=== PATIENT | female | born 2000 | race Caucasian/White ===

== ENCOUNTER 2022-05-22 11:09 | Day surgery (SDC) | payer OTHER ==
[~2022-05-22] VITALS: Ht 154.9 cm; Wt 69.9 kg
[~2022-05-22 11:09] MED LIST: AMOX500T PO
[2022-05-22] MEDS ORDERED: SCOPOLAMINE 1MG TRANSDERMAL PATCH TOP ONE (12:25)
[2022-05-22] MEDS ORDERED: LR 1,000 ML IV SCH ×3 (12:25→14:45)
[2022-05-22] MEDS ORDERED: BUPIVACAINE/EPIN 0.5% 30 ML VIAL As Ordered ONE (12:26)
[2022-05-22] MEDS ORDERED: MIDAZOLAM INJ 2MG/2ML VIAL (J2250 PER 1MG) As Ordered ONE (12:41)
[2022-05-22] MEDS ORDERED: fentaNYL 100 MCG/2 ML INJECTION As Ordered ONE ×2 (12:41→13:08)
[2022-05-22] MEDS ORDERED: SUGAMMADEX SODIUM 500 MG/5 ML VIAL (BRIDION) As Ordered ONE (12:41)
[2022-05-22] MEDS ORDERED: LIDOCAINE 2% 100MG/5ML SDV (FOR ANES.) As Ordered ONE (12:41)
[2022-05-22] MEDS ORDERED: dexameTHASONE 4 MG/ML 1ML VIAL (J1100 PER 1MG) As Ordered ONE (12:41)
[2022-05-22] MEDS ORDERED: ONDANSETRON 4MG 2ML VIAL As Ordered ONE (12:41)
[2022-05-22] MEDS ORDERED: METOCLOPRAMIDE INJ 10MG/2ML VIAL (J2765 PER 1) As Ordered ONE (12:41)
[2022-05-22] MEDS ORDERED: propofoL 200 MG/20 ML VIAL As Ordered ONE (12:41)
[2022-05-22] MEDS ORDERED: ACETAMINOPHEN 1000MG 100ML IV BTL (OFIRMEV) (J0131 PER 10MG) As Ordered ONE (12:52)
[2022-05-22] MEDS ORDERED: ONDANSETRON 4MG 2ML VIAL IV PRN ×2 (13:20→13:55)
[2022-05-22] MEDS ORDERED: MORPHINE 2 MG/ML 1ML VIAL IV PRN (13:20)
[2022-05-22] MEDS: oxyCODONE 5MG TAB PO PRN ×2 (13:43→14:10)
[2022-05-22] MEDS: fentaNYL 100 MCG/2 ML INJECTION IV PRN ×4 (13:43→14:19)
[2022-05-22] MEDS ORDERED: HYDROcodone/APAP LIQUID 7.5-325MG 15ML UDC (LORTAB ELIXIR) PO PRN (13:50)
[2022-05-22 14:25] VITALS: BP 142/72
== END 2022-05-22 15:00 | disposition home or self-care (01) ==
LOC: M SDC 11:09
PROVIDERS: ATTEND Otolaryngology
DX: J35.01 Chronic tonsillitis (principal); Z88.2 Allergy status to sulfonamides
CPT/HCPCS: 42826; 81025; 88302; J0131; J1100; J2250; J2405; J2765; J3010